=== PATIENT | female | born 1975 | race Caucasian/White ===

== ENCOUNTER → 2016-05-10 06:29 | Day surgery (SDC) | payer OTHER ==
[~2016-05-10 06:29] MED LIST: Acetic Acid 0.25%* 250 ML BTL ONE; Buffered Lidocaine 1% SYRIN* 3 ML/SYR SYRINGE INTRADERM ONE; Ferric Subsulfate* 8 ML BTL ONE; Iodine Strong (LUGOL'S)* 14 ML BTL ONE; Ketorolac INJ* 30 MG/ML 1 ML VIAL IV PRN; Lidocaine 2% JELLY* 20 ML (for OR use) ONE; Lidocaine 2% PF* 5 ML VIAL ONE; Ondansetron INJ* 2 MG/ML VIAL IV PRN; Propofol* 10 MG/ML 20 ML BTL IV PUSH ONE; Sodium Citrate/Citric Acid* 15 ML UDC ONE; Sodium Citrate/Citric Acid* 15 ML UDC PO ONE; fentaNYL* 50 MCG/ML 2 ML VIAL (100 MCG VIAL) IV PRN; fentaNYL* 50 MCG/ML 2 ML VIAL (100 MCG VIAL) ONE
[2016-05-10 06:36] LABS: Manual Entry Verification CAR0052; UR Preg Internal Control QC Line Present; UR Preg Kit Lot# 6030156
[2016-05-10 09:20] VITALS: BP 125/86
--- NOTE | 2016-05-11 13:38 | OP ---
OPERATIVE REPORT: DATE OF OPERATION: 05/10/16 DATE OF : 79 SURGEON: Juan Luis Sanchez MD RUBBER MOULDING MACHINE OPERATOR: ANESTHESIA: General anesthetic with endotracheal tube intubation. PRE-OP DIAGNOSES: 1. Mild dysplasia on endocervical curetting specimen during colposcopy. 2. External genitalia condylomatous warts. POST-OP DIAGNOSES: 1. Mild dysplasia on endocervical curetting specimen during colposcopy. 2. External genitalia condylomatous warts. OPERATIVE PROCEDURE: Loop electrocautery excision procedure and fulguration of external condyloma lesions. ESTIMATED BLOOD LOSS: None. SPECIMEN: Cervical LEEP biopsy specimen. FLUIDS: She received 800 cc of IV fluids. URINE OUTPUT: 50 cc of clear urine. FINDINGS: Examination under anesthesia revealed multiple, up to 7 condylomatous warty lesions at the posterior aspect of the introitus and its lateral borders. The cervix was grossly normal. DESCRIPTION OF PROCEDURE: The patient was taken to the operating room, where she was identified. She was placed on the operating room table, where general anesthetic with endotracheal intubation was obtained without difficulty. She was placed in the dorsal lithotomy position, prepped and dapped in a normal sterile fashion. At this point, attention was then brought on to the patient's perineum, the bladder was catheterized and drained clear urine. I have noted that the patient had multiple extensive condylomatous warts at the introitus at the posterior aspect of the vagina and its lateral wall externally. She had asked that I remove these during the surgery. I proceeded to do a colposcopy and applied acetic acid to the vaginal area to further identify the warty lesions and these were identified. At that point, I proceeded to do the LEEP procedure. A coated speculum was inserted into the patient's vagina, a lateral vaginal wall retractor, which was also coated, was inserted. I used a LEEP loop cervical biopsy was preformed and sent to pathology. The bed of the cervix where the loop had been obtained from was cauterized with electrocautery to obtain hemostasis. Once hemostasis was obtained, I then removed the speculum from the patient's vagina and instruments and then I proceeded to use cautery to fulgurate the condylomatous lesions on the patient's external genitalia. These were done individually. There was a total of 7, after which applied lidocaine gel to the area for pain relief. The patient tolerated the procedure well. Sponge, lap, and needle counts were correct x2. She was then transferred to recovery room area in stable condition. [id number]/[facility] #: [id number] OWEN
== END | disposition home or self-care (01) ==
LOC: OR 06:29
PROVIDERS: ATTEND Obstetrics & Gynecology
DX: N87.0 Mild cervical dysplasia (principal); A63.0 Anogenital (venereal) warts; F17.200 Nicotine dependence, unspecified, uncomplicated
CPT/HCPCS: 81025; 88307; A9270-GY; J2704; J3010

== ENCOUNTER 2018-11-04 06:29 | Day surgery (SDC) | payer BC ==
--- NOTE | 2018-10-25 14:53 | HP ---
PREOPERATIVE HISTORY AND PHYSICAL: DATE OF ADMISSION/SURGERY: 11/04/18 [facility] DATE OF OFFICE VISIT: 10/24/18 ATTENDING SURGEON: Dr. Serina Manzo.* (DICTATED BY ARMAND GARCÍA) PROCEDURE: Left knee arthroscopy, anterior cruciate ligament reconstruction with possible autograft, arthroscopy, possible meniscus repair. CHIEF COMPLAINT: Left knee pain. HISTORY OF PRESENT ILLNESS: Fozia is a 43-year-old female who presents to the clinic for left knee instability due to an ACL tear. She has failed conservative measures, therefore agreed to undergo a left knee arthroscopy, anterior cruciate ligament reconstruction with possible autograft, arthroscopy, possible meniscus repair with Dr. Manzo on 11/04/18. PAST MEDICAL HISTORY: No current problems. PAST SURGICAL HISTORY: Right ankle cartilage surgery. MEDICATIONS: No active medications. ALLERGIES: SULFA ANTIBIOTICS. FAMILY HISTORY: Positive for breast, lung, and bone cancer. Denies family history of DVT or PE. SOCIAL HISTORY: She lives with her kids. She is a teacher. She denies tobacco use. She reports occasional alcohol consumption. She is right-hand dominant. REVIEW OF SYSTEMS: A 14-point review of systems was reviewed with the patient. Positive for current complaint, otherwise negative. Denies history of DVT or PE. Denies fever, chills, chest pain, shortness of breath. Denies history of bleeding disorder. PHYSICAL EXAMINATION GENERAL: A 43-year-old well-developed, well-nourished female, in no acute distress. Alert and oriented x3. Appropriate mood and affect. Appropriate balance and coordination of the lower extremities. VITAL SIGNS: Height 62, weight 116, pulse 66, blood pressure 130/78, temperature 99.4, BMI 21.2. HEENT: Normocephalic, atraumatic. PERRLA. Throat clear. NECK: Supple. PULMONARY: Lungs are clear to auscultation bilaterally. No wheezing, rhonchi, or rales. CARDIO: Regular rate and rhythm. S1, S2. No murmurs, gallops, or rubs. No edema. ABDOMEN: Positive bowel sounds. Soft, nontender. NEURO: Alert and oriented x3. Cranial nerves grossly intact. MUSCULOSKELETAL: Left lower extremity: Skin is intact. No abrasions or open wounds. No significant effusion. 2B Kiya. Negative posterior drawer. Stable to varus and valgus stress. Range of motion 0 to 130. Calf soft, nontender. +5/5 strength to ankle dorsiflexion and plantarflexion. +2 DP pulse. Sensation intact to light touch distally. DIAGNOSTIC STUDIES: MRI of the left knee revealed grade 3 ACL rupture. PLAN: The patient is scheduled to undergo a left knee arthroscopy, anterior cruciate ligament reconstruction with possible autograft, arthroscopy, possible meniscus repair. The patient has thought about which graft she would like to have and will go with bone-patellar tendon-bone autograft. The surgery is on . Percocet will be used for postop pain management. She will follow up 8 days postop for followup and suture removal. ARMAND GARCÍA [id number]/[facility] #: [id number] MTDKaykay
[~2018-11-04 06:29] MED LIST changes: -Acetic Acid 0.25%* 250 ML BTL ONE; +Buffered Lidocaine 1% SYRIN* 1 ML/SYRINGE INTRADERM ONE; -Buffered Lidocaine 1% SYRIN* 3 ML/SYR SYRINGE INTRADERM ONE; +Famotidine IV* 10 MG/ML 2 ML (20 mg) IV ONE; -Ferric Subsulfate* 8 ML BTL ONE; -Iodine Strong (LUGOL'S)* 14 ML BTL ONE; -Ketorolac INJ* 30 MG/ML 1 ML VIAL IV PRN; +Lactated Ringers 1000 ML Bag* 1,000 ML IV SCH; -Lidocaine 2% JELLY* 20 ML (for OR use) ONE; -Lidocaine 2% PF* 5 ML VIAL ONE; -Ondansetron INJ* 2 MG/ML VIAL IV PRN; -Propofol* 10 MG/ML 20 ML BTL IV PUSH ONE; -Sodium Citrate/Citric Acid* 15 ML UDC ONE; -Sodium Citrate/Citric Acid* 15 ML UDC PO ONE; -fentaNYL* 50 MCG/ML 2 ML VIAL (100 MCG VIAL) IV PRN; -fentaNYL* 50 MCG/ML 2 ML VIAL (100 MCG VIAL) ONE
[2018-11-04] MEDS ORDERED: ceFAZolin 2 GM PREMIX in ORs 2 GM/50 ML BAG ONE (06:39)
[2018-11-04] MEDS ORDERED: Famotidine IV* 10 MG/ML 2 ML (20 mg) ONE (06:40)
[2018-11-04] MEDS ORDERED: Lidocaine 1% w EPI 1:200,000* SDV 30 ML VIAL ONE (07:18)
[2018-11-04] MEDS ORDERED: Ropivacaine 0.2% * 2 MG/ML VIAL ONE (07:19)
[2018-11-04] MEDS ORDERED: Midazolam* 1 MG/ML 5 ML VIAL (5 MG) ONE (07:27)
[2018-11-04] MEDS ORDERED: fentaNYL* 50 MCG/ML 2 ML VIAL (100 MCG VIAL) ONE (07:40)
[2018-11-04] MEDS ORDERED: Ketorolac INJ* 30 MG/ML 1 ML VIAL ONE (07:53)
[2018-11-04] MEDS ORDERED: Dexamethasone IV* 4 MG/ML 1 ML (4 MG) ONE (07:53)
[2018-11-04] MEDS ORDERED: Propofol* 10 MG/ML 20 ML BTL ONE ×2 (07:53→09:12)
[2018-11-04] MEDS ORDERED: Lidocaine 2% PF * 5 ML VIAL ONE (07:53)
[2018-11-04] MEDS ORDERED: DiMENhydriNATE IV* 50 MG/ML VIAL ONE (07:53)
[2018-11-04] MEDS ORDERED: Succinylcholine* 20 MG/ML 10 ML VIAL ONE (07:53)
[2018-11-04] MEDS ORDERED: Ondansetron INJ* 2 MG/ML VIAL ONE (07:53)
[2018-11-04] MEDS ORDERED: DiMENhydriNATE IV* 50 MG/ML VIAL IV PUSH PRN (08:11)
[2018-11-04] MEDS ORDERED: HYDROmorphone INJ1* 1 MG/ML SYRINGE IV PRN (08:11)
[2018-11-04] MEDS ORDERED: Naloxone* 0.4 MG/ML 1 ML VIAL IV PRN (08:11)
[2018-11-04] MEDS ORDERED: HYDROcodone/ACETAMIN 5-325 MG* 1 TAB PO PRN (08:11)
[2018-11-04] MEDS ORDERED: HYDROmorphone INJ* 0.5 MG/0.5 ML SYRINGE ONE (08:56)
[2018-11-04] MEDS ORDERED: HYDROcodone/ACETAMIN 5-325 MG* 1 TAB ONE (10:15)
[2018-11-04 10:34] VITALS: BP 143/92
--- NOTE | 2018-11-04 18:49 | OP ---
CC: PCP___. DATE OF OPERATION: 11/04/18 - [facility] DATE OF : 79 SURGEON: Serina Manzo MD STONE LATHE OPERATOR: ARMAND Irving. An assistant paralegal was needed for the entirety of the case to help with positioning, retraction, and utilized throughout all portion of the case. ANESTHESIOLOGIST: Dr. Collins. ANESTHESIA: General. PRE-OP DIAGNOSIS: Left knee grade 3 anterior cruciate ligament rupture. POST-OP DIAGNOSIS: Left knee grade 3 anterior cruciate ligament rupture. OPERATIVE PROCEDURE: Left knee arthroscopy with ACL reconstruction using autograft. COMPLICATIONS: None. ESTIMATED BLOOD LOSS: Minimal. TOURNIQUET TIME: 19 minutes on 250 mmHg. IMPLANTS: Two Galarza and Nephew Soft Silk size 7 x 20 and 9 x 25. INDICATIONS: Fozia Gómez is a 43-year-old female who sustained injury to her knee in March, who injured her knee. She is very active. She tried a course of nonoperative treatment but failed, had persistent instability and elected to proceed with surgical treatment. Risks and benefits were discussed at length included but not limited to bleeding, infection; damage to nerves, vessels, surrounding structures; wound nonhealing; persistent pain; need for surgery; scarring; stiffness; incomplete relief of symptoms; risks of anesthesia. DESCRIPTION OF PROCEDURE: The patient was greeted in the preoperative area by the attending surgeon. Correct extremity was marked and consent was confirmed. The patient was brought back to the operating suite, where she was placed in supine position on the operating table. She then underwent general anesthesia and an LMA was placed, after which she was appropriately positioned in the operating table. The lateral post was positioned. Unsterile tourniquet was placed high on the proximal thigh. The left leg was then prepped and draped in the usual sterile fashion, beginning with chlorhexidine soap, scrub, and alcohol wipe and a final prep of ChloraPrep. After appropriate surgical pause, indicating side, site, procedure, and administration of antibiotics, the knee was intraarticularly injected with 1% lidocaine with epi. The Esmarch was used to exsanguinate the limb and the tourniquet inflated to 250 mmHg. A 15 blade was used to make an incision starting somewhat medial to the midline incision. Using 15 blade, soft tissues were carefully dissected to expose peritenon, which was then preserved for later layer of closure. The center third of the tendon was then harvested about 10 mm in width, total tendon length was about 32 mm. The center 10 mm were harvested with full thickness flaps. Proximally, a bone block was harvested for 9 x 23 mm and distally 10 x 30 mm. Using sagittal saw and osteotomes, the graft was then prepared in the back table by the assistant paralegal. Meanwhile, the surgeon closed the full thickness flaps and closed the tendon in interrupted fashion with care to prevent patella durga or patella baja and not overtighten it. After which, the tourniquet was deflated and attention was directed to the arthroscopy. The lateral portal was made through the capsule and the scope was brought into the joint. Joint was examined. There was large fat pad that was identified. The anteromedial portal was made in an outside fashion. Shaver was used to debride back the abundant fat pad. There was a grade 3 rupture of the ACL that was apparent and there was scar to the PCL. The diagnostic knee arthroscopy began and the patellofemoral joint was examined and was found to have grade 0 changes. Medial and lateral gutters were intact without any loose debris. Medial femoral condyle had a very small area of softening and unstable flap just at the medial aspect where a plica would be and this was then debrided back using a shaver. Attention was directed to the medial compartment, which otherwise had grade 0 changes. Medial meniscus was intact. Lateral compartment was examined as well. There were grade 0 changes to the lateral femoral condyle, lateral plateau. Lateral meniscus was intact through the mild fraying of the root of the meniscus, but it did not appear to be unstable. Remainder of the root was intact. The knee was placed in 90 degrees and the remaining stump of the ACL was then carefully removed using biters and jaleesa. The lateral wall was prepared in the usual fashion with electro-cautery device. After which, a starting awl was then used to provisionally reji a starting point for the final femoral tunnel. This was checked by changing the scope from the lateral to the medial portal to visualize this as a reference point. Once this was then done, attention was directed to the tibial tunnel. A tip-to-tip guide placed at 55 degrees was then placed. Then a guidewire was then positioned in the center of the tibial footprint. Once this was appropriately positioned, this was overdrilled with a size 10 mm full-bore reamer. The shaver and the rasps were used to rasp the tunnel to allow to remove any sharp edges. Care was placed to prevent fluid egress. Once this was complete, the knee was then hyperflexed and then the Galarza and Nephew straight guide was then used to drill through the center of the footprint out through the lateral condyle and through the IT band and skin. Once it was appropriately positioned, the size 9- mm low profile reamer was used to drill to depths of about 25 mm for the tunnel placement. The tunnel was then visualized and found to have a good back wall and rasped. All excess bone and debris was removed. A #2 Ethibond was passed through the eyelet of the Beath pin through the skin laterally and then through an antegrade fashion through the tibial tunnel. At which point, the graft which had been prepared and wrapped with saline soaked gauze was then brought to the table and passed under direct and arthroscopic visualization. It was very well seated in the femoral tunnel, secured with 7 x 20 mm Soft Silk screw. The images were obtained and the knee was taken to full motion. There was no evidence of impingement anteriorly. The graft was then cycled approximately 20 times with no creep or stress of the graft. No change in positioning of the graft and confirmed by putting the scope and then taking images. Then the knee was then placed about 20 degrees of flexion and with tension on the tibial sutures through the bone block, a size 9 x 25 mm Soft Silk screw was then used to secure to the bone block. The knee was taken through range of motion. Kiya was assessed and found to be stable. The scope was brought to the joint. Again, the graft was found to be in good position. There was an excess bone block in the tibial tunnel, which was then removed. At this point, the wound was copiously irrigated with sterile saline. Any excess bone graft was placed first in the patellar defect and then oversewn with 0 Vicryl and then second in the tibial defect. Then the peritenon was closed with #2 Vicryl in running fashion. The wounds were irrigated again. The skin was closed in layer using 3-0 Monocryl and for subcutaneous as well as running layer. Wound was injected with 0.2% ropivacaine. Sterile dressings were applied. A Cryo/Cuff and hinged knee brace was applied, locked in extension. She was awoken from anesthesia and transferred to the PACU in stable condition. POSTOPERATIVE PLAN: She will be weightbearing as tolerated with crutches and start therapy this week. She will be discharged on pain medications and antibiotics. DVT prophylaxis was considered but deferred due to no previous personal or family history. I will see the patient back in 6 to 8 days. [id number]/[facility] #: [id number] MTDD
== END 2018-11-04 11:00 | disposition home or self-care (01) ==
LOC: OREAST 06:29
PROVIDERS: ATTEND Orthopaedic Surgery
DX: S83.512A Sprain of anterior cruciate ligament of left knee, initial encounter (principal); X58.XXXA Exposure to other specified factors, initial encounter; Y92.9 Unspecified place or not applicable
CPT/HCPCS: 81025; C1713; J0330; J0690; J1100; J1170; J1240; J1885; J2001; J2250; J2405; J2704; J2795; J3010